=== PATIENT | male | born 1955 | race Caucasian/White ===

== ENCOUNTER 2023-08-29 08:29 | Day surgery (SDC) | payer MEDICARE, OTHER, SELFPAY ==
[2023-08-21 09:32] VITALS: BMI 32.6
[2023-08-29] VITALS (14 sets, daily range): BP systolic 109–152; BP diastolic 68–94; PULSE 58–70; RESP 13–23; TEMP 35.6–37; O2SAT 94–99; BMI 32.5
--- NOTE | 2023-08-29 07:26 | DI.RAD.S_ITS ---
PROCEDURE: XR SHOULDER LT MIN 2V INDICATIONS: TSA TECHNIQUE: 2 views of the shoulder were acquired. COMPARISON: [facility] [place], CR, XR SHOULDER 2+ VIEWS LEFT, 07/18/2021, 10:38. FINDINGS: Bones: Left shoulder arthroplasty hardware is intact. Apparent lucency along the stem and lateral aspect on the AP view. No fractures or dislocations. No suspicious bony lesions. Visualized ribs appear intact. Soft tissues: No suspicious soft tissue calcifications. Surgical changes about the left shoulder. IMPRESSION: Left shoulder arthroplasty hardware is intact. Apparent lucency along the stem and lateral aspect of the AP view may be secondary to overlying postsurgical gas. Anatomic alignment. Attention on follow-up imaging. Dictated by: Nirav Ruffin M.D. on 08/29/2023 at 15:11 Approved by: Nirav Ruffin M.D. on 08/29/2023 at 15:56
[2023-08-29] MEDS: ACETAMINOPHEN 325 MG TABLET 975 MG PO (09:15)
[2023-08-29] MEDS: LACTATED RINGERS 1,000 ML 42 ML IV ×2 (09:15→12:09)
[2023-08-29] MEDS: VANCOMYCIN 1,500 MG/300 ML PIGGYBACK 200 MG IV (09:16)
--- NOTE | 2023-08-29 10:14 | PM.PREOP ---
Pre-operative Note Interval Note History & Physical reviewed/Exam performed by Physician: Yes Changes to H&P: No
--- NOTE | 2023-08-29 10:42 | SUR.OPER ---
Beach chair with Nghia/Jonathan shoulder positioner. Lower body on padded OR bed. Head in foam padded head cradle, secured with straps. Non-operative arm secured <90 degrees abduction. Pillow under knees. Safety belt at thigh. Cloth tape over blanket over lower legs.
[2023-08-29] MEDS: GENTAMICIN 400 MG in SODIUM CHLORIDE 0.9% 100 ML 110 MG IV (11:15)
[2023-08-29] MEDS: LIDOCAINE 1% W/EPI 20 ML INJ (11:35)
--- NOTE | 2023-08-29 12:55 | P.OP_ITS ---
Operative Date/Time/Diagnoses Date of procedure: 08/29/23 Time of procedure: 11:00 Pre-op diagnosis: Left end-stage glenohumeral joint arthritis Post-op diagnosis: same Procedure & Clinicians Procedure: Left total shoulder arthroplasty Same procedure as scheduled: Yes Indications: End-stage arthritis left shoulder Surgeon: Alberto Tatum Sales And Service Consultant: Valeria De La Torre Operative Notes Findings: End-stage arthritic changes to the left glenohumeral joint with no sign of any rotator cuff tear. No sign of any high-riding humeral head. Closure Type: primary Applied: implant(s) (Large cage screw, 45 trunnion, large glenoid, 45 x 17 humeral head) Estimated Blood Loss (mL): 50 Procedure in detail: On date of service, Patient was met in the holding area. The operative site was signed and witnessed by the OR staff. The surgeries once again discussed with the patient and any remaining questions they had were answered fully. Patient was taken back to the operating theater and placed on the operating table in a supine position. Great care was taken to ensure that all bony prominences were properly padded. Patient was then placed into the beach chair position. The head and neck were properly positioned and secured. A timeout was performed verifying patient's name, procedure, and the operative site. The upper extremity was then prepped and draped in the normal sterile fashion. Previously, the bony anatomy and incision were marked out as well as injected with Marcaine with epinephrine. A deltopectoral approach was performed. 10 blade was used to incise the skin and fascial tissue. A deep knife was used to continue sharp dissection until the cephalic vein was visualized. The cephalic vein was dissected free allowing us to expose the deltopectoral interval. This interval was then developed. A Agudelo elevator was used to free up the deltoid of any scarring both superficially as well as deeply. The vein and the deltoid were taken laterally while the pectoralis was taken medially. This gave us good visualization of the strap muscles. The clavipectoral fascia was removed and the strap muscles were then retracted medially with the pectoralis. This gave us stabilization of the subscapularis. The circumflex vessels were ligated and the subscapularis was sharply excised off the lesser tuberosity and then tagged. Once the subscapularis was released we're able to dislocate the shoulder. Patient had end-stage arthritic changes to the humeral head as well as the glenoid with large osteophytes anterior inferiorly as well as posteriorly. A Ronger was then used to remove the osteophytes. See findings above for descriptions of the humeral head and glenoid. Next, cutting guide was placed and a saw was used to remove the humeral head. Once the head was removed it was templated. Pin was placed to determine the size of the trunnion screw. A large trunnion screw was measured. Protector placed for the osteotomy was then placed and and we turned our attention back to the subscapularis as well as the glenoid. The subscapularis was freed up and a 360? fashion. The degenerative anterior and inferior capsular tissue was removed. This was followed by removing the degenerative labral tissue from around the glenoid as well as the biceps insertion. Retractors were used to protect the axillary nerve while we remove the degenerative capsular and labral tissue. This gave us good visualization of the glenoid. Glenoid trials were used until we found the appropriate fit and curvature. A large glenoid provided the best fit. The center hole was drilled followed by reaming of the glenoid. The wound was copiously irrigated after reaming. Next the pegs were drilled and a trial glenoid was impacted into place. Once we were satisfied with the preparation of the glenoid, the final component was cemented into place. This was followed by impaction. We Return to our attention back to the humerus. The protector plate was removed and heads were trialed once again until we found the appropriate fit. A 45 x 17 head provided the best coverage as well as stability to the glenohumeral joint. Trials were removed and bone tunnels were made into the humeral neck. #2 FiberWire were passed through the bone tunnels for eventual subscapularis repair. The stem this implant were impacted into place and the shoulder was reduced. It was taken through range of motion and was felt to be stable in both posterior translation as well as external and internal rotation with abduction. The subscapularis was repaired back to the lesser tuberosity through the bone tunnels. This was then reinforced with soft tissue repair. Part of the rotator interval was then closed. A drain was placed and the rest of the wound was closed in a layered fashion. The shoulder was then cleaned dried and dressed and the patient was taken to the PACU in stable condition. Patient will follow our postoperative protocol for total shoulder arthroplasty. Complications: none Post-operative Condition: stable Disposition: PACU Plan for aftercare: Patient can be discharged home tomorrow. Patient's drain will need to be removed before discharge.
[2023-08-29] MEDS: LACTATED RINGERS 1,000 ML 100 ML IV (14:00)
[2023-08-29] MEDS: BENZOCAINE/MENTHOL 1 LOZ PKT 1 EACH PO (16:54)
--- NOTE | 2023-08-29 19:02 | PC.NURSE ---
Addendum entered by Kiera Devries R.N. 08/29/23 19:44: patient is able to void this evening. Original Note: Patient is A&OX4, VSS, afebrile on RA. Aquacel to LUE c/d/i. L arm in sling. Hemovac, draining 150cc blood this evening, Patient denies pain. Numbness to fingers, able to wiggle them. Dull sensation to LUE. He is able to ambulate with SBA and void this evening. Denies dizziness n/v. Continuous monitoring.
[2023-08-29] MEDS: SENNOSIDES 8.6 MG TABLET 17.2 MG PO (21:10)
[2023-08-29] MEDS: DOCUSATE 100 MG CAPSULE PO (21:10)
[2023-08-29] MEDS: VANCOMYCIN 1,000 MG/200 ML PIGGYBACK 200 MG IV (21:11)
[2023-08-30 06:23] LABS: Add Manual Diff / Slide Review NO; Basophils Absolute Auto 0 /uL (0-100); Basophils Percent Auto 0.2 % (0-2); Eosinophils Absolute Auto 0 /uL (0-450); Eosinophils Percent Auto 0.1 % (2-4); Hematocrit 37.8 % (41-53); Hemoglobin 12.8 g/dL (13.5-17.5); Lymphocytes Absolute Auto 1100 /uL (1100-4500); Lymphocytes Percent Auto 8.5 % (25-40); Mean Corpuscular HGB Conc 33.9 % (30-36); Mean Corpuscular Hemoglobin 34.4 PG (26-34); Mean Corpuscular Volume 101.4 fL (80-100); Monocytes Absolute Auto 1200 /uL (0-900); Monocytes Percent Auto 9.3 % (3-14); Neutrophils Absolute Auto 10900 /uL (1500-7000); Neutrophils Percent Auto 81.9 % (50-75); Platelet Count 143 X10^3/uL (150-400); Red Blood Cell Count 3.73 X10^6/uL (4.5-5.9); White Blood Cell Count 13.4 X10^3/uL (4.5-11.0)
[2023-08-30] MEDS: ACETAMINOPHEN 325 MG TABLET 650 MG PO (06:37)
[2023-08-30] MEDS: OXYCODONE IR 5 MG TABLET PO ×2 (06:37→09:06)
[2023-08-30 06:40] LABS: BUN Creatinine Ratio 19.6 (6-22); Blood Urea Nitrogen 19 mg/dL (9-20); Calcium 7.9 mg/dL (8.4-10.2); Carbon Dioxide 25 mmol/L (22-32); Chloride 107 mmol/L (98-107); Estimated Glomerular Filt Rate > 60 mL/min (>60); Glucose 137 mg/dL (80-110); HEMOLYSIS < 15 (0-50); Potassium 4.2 mmol/L (3.4-5.1); Sodium 138 mmol/L (137-145)
[2023-08-30 07:47] VITALS: BP 151/98; PULSE 105; RESP 16; TEMP 36.2; O2SAT 99
--- NOTE | 2023-08-30 08:54 | PM.DS.1 ---
History of Present Illness History of Present Illness Date Patient Seen: 08/30/23 Time Patient Seen: 08:45 Chief complaint: Left total shoulder arthroplasty *OPB* Narrative: Procedure & Clinicians Procedure: Left total shoulder arthroplasty Same procedure as scheduled: Yes Indications: End-stage arthritis left shoulder Surgeon: Alberto Tatum Community Chest Officer: Valeria De La Torre Operative Notes Findings: End-stage arthritic changes to the left glenohumeral joint with no sign of any rotator cuff tear. No sign of any high-riding humeral head. Closure Type: primary Applied: implant(s) (Large cage screw, 45 trunnion, large glenoid, 45 x 17 humeral head) Estimated Blood Loss (mL): 50 Discharge Providers Provider Date of admission: 08/29/23 Discharge Date: 08/30/23 Primary care physician: Vale Spicer MD Consults: 08/29/23 07:26 Consult to Anesthesiology Routine Comment: Consulting Provider: Anesthesiologist Reason for consultation: Regional block for post operative pain control Has provider been notified: No 08/29/23 12:52 Consult to Discharge Planning Routine Comment: Consult to Occupational Therapy Evaluate & Treat Comment: Physician Instructions: Evaluate and treat Consult to Physical Therapy Evaluate & Treat Comment: Physician Instructions: Evaluate and Treat Discharge provider: Xiang Cabezas PA-C Summary Hospital Course Discharge Diagnosis: Status post left shoulder total arthroplasty. Hospital Course: Multimodal pain control. Drain removed Status at Discharge Cognitive/behavioral status at discharge: oriented Functional status at discharge: independent ambulation Time Spent with Patient Time spent: Less than 30 minutes Exam Vital Signs (past 8 hours): - 08/30/23 07:47 Temperature 97.1 F L Pulse Rate 105 H Respiratory Rate 16 Blood Pressure 151/98 H Pulse Oximetry 99 Oxygen Flow Rate 0 Oxygen Delivery Method Room Air Oxygen Flow Rate 0 Narrative Exam Narrative: Patient is found in his breakfast this morning left shoulder immobilizer is in place and well-maintained. Drain was removed early this morning. Dressing appears to be dry and intact. Able to manipulate all 5 fingers. Sensation intact to light touch over all 5 fat pads. Able manipulate his wrist in all 4 anatomical positions. Resp Effort & Inspection: normal respiratory effort and able to speak in complete sentences Objective Labs 08/30/23 06:10 08/30/23 06:10 Labs: Laboratory Results - last 24 hr 08/30/23 06:10 WBC 13.4 H RBC 3.73 L Hgb 12.8 L Hct 37.8 L MCV 101.4 H MCH 34.4 H MCHC 33.9 RDW 16.0 H Plt Count 143 L Neut % (Auto) 81.9 H Lymph % (Auto) 8.5 L [place] % (Auto) 9.3 Eos % (Auto) 0.1 L Baso % (Auto) 0.2 Neut # (Auto) 84392 H Lymph # (Auto) 1100 [place] # (Auto) 1200 H Eos # (Auto) 0 Baso # (Auto) 0 Sodium 138 Potassium 4.2 Chloride 107 Carbon Dioxide 25 BUN 19 Creatinine 0.97 Estimated GFR > 60 BUN/Creatinine Ratio 19.6 Glucose 137 H Calcium 7.9 L PFSH Medical History Heart failure Acid reflux 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 Plan of Treatment: Keep dressing dry and intact. Keep left arm in shoulder immobilizer at all times except for assisted therapy. Patient is prescribed [place] 5 mg take every 6 hours for pain relief, ibuprofen 600 mg t.i.d. for inflammation and Zofran 4 mg take every 8 hours as needed for postoperative nausea. Patient will follow up in clinic in 2 weeks for wound check. Patient will follow up with outpatient physical therapy to start assisted range of motion. Discharge Plan Discharge Plan Patient Disposition: Home Discharge orders & Medications Discharge Orders: Discharge (Order); Ordered 08/30/23 Ordered By: Xiang Cabezas Prescriptions: Continued atorvastatin 80 mg Tablet 80 mg PO DAILY aspirin 81 mg Tablet,Delayed Release (Dr/Ec) 81 mg PO BEDTIME famotidine [Pepcid] 20 mg Tablet 20 mg PO DAILY allopurinol 300 mg Tablet 300 mg PO DAILY eplerenone 25 mg Tablet 12.5 mg PO DAILY losartan 50 mg Tablet 50 mg PO BID metoprolol succinate 100 mg Tablet Extended Release 24 Hr 200 mg PO DAILY fluticasone propionate 50 mcg/actuation [place],Suspension 2 spray INTRANASAL DAILY Rx Instructions: administer into each nostril metoprolol tartrate 25 mg Tablet 25 mg PO DAILY PRN (Reason: Break through Afib) Follow up/Referrals: Vale Spicer MD [Primary Care Provider] - Alberto Tatum MD [Physician] - (Follow up at [facility] as scheduled in 2 weeks. ) Diet/Activity/Treatments Activity: Keep left arm in immobilizer except for PT and home exercise program Skin/Wound/Dressing Care Report to your healthcare provider any signs of infection, such as:: chills, fever, night sweats, unusual drainage and unusual redness Dressing: Keep dressing clean and dry Visit Report/Discharge Packet Instructions: DI for Prescription Opioid Use, DI for Shoulder Replacement Stand Alone Forms: Patient Portal/API, Surgery Discharge Discharge Data Primary Care Provider: Vale Spicer Attending Provider: Alberto Tatum
[2023-08-30] MEDS: DOCUSATE 100 MG CAPSULE PO (09:06)
--- NOTE | 2023-08-30 11:12 | OT.IP.EVAL ---
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) CLARK on CPAP Osteoarthritis Palpitations Presence of Watchman left atrial appendage closure device (~05/2023) Prostate cancer (2009) Surgical History (Last Reviewed 08/29/23 @ 09:12 by Brooke Laguerre, RN) H/O vasectomy History of colonoscopy with polypectomy (~2022) Hx of heart artery stent (~2014) Hx of hernia repair Hx of prostatectomy (2009) Occupational Therapy Inpatient Evaluation/Re-Eval M1 PT/OT-IP Prior Functional Status Start: 08/30/23 11:37 Freq: NEEDED Status: Active Protocol: Document 08/30/23 11:40 [facility] (Rec: 08/30/23 11:55 [facility] [id number]) Medical Review Prior Functional Status Communication Independent Mobility and Gait Independent Activities of Daily Living and IADL's Independent but had pain with overhead reach and clothing items over head. Social History Household Members spouse Living Arrangements House Number of Floors (Floors) One Floor Number of Stairs To Enter/Railing? 5 steps with bilateral rails. Home Environment High Toilet,Walk in Shower M2 OT-IP Current Condition Start: 08/30/23 11:37 Freq: Status: Active Protocol: Document 08/30/23 11:40 [facility] (Rec: 08/30/23 11:55 [facility] [id number]) Occupational Therapy Current Condition Current Condition Evaluation Date 08/30/23 Treatment Diagnosis S/P L TSA Diagnosis Onset Date 08/29/23 Post Operative Precautions Shoulder Precautions Sling,PROM,Internal Rotation to Body,No External Rotation, No Abduction,Forward Flexion to 90 degrees,Pendulums M3 OT- IP Subjective and Pain Start: 08/30/23 11:37 Freq: Status: Active Protocol: Document 08/30/23 11:40 [facility] (Rec: 08/30/23 11:55 [facility] [id number]) OT- Subjective Occupational Therapy Visit Type Type Initial Evaluation Visit Start Time 11:12 Visit Stop Time 11:31 Occupational Therapy Visit Comments Patient Comments Pt agreed to work with OT. Patient/Caregiver Goals To go home. OT Pain Assessment Pain When Pain Assessed At Rest Pain Present Pain Present Pain Reported Location shoulder Intensity 4 Scale Used Numeric (0 - 10) M4 OT- IP ADL's Start: 08/30/23 11:37 Freq: Status: Active Protocol: Document 08/30/23 11:40 [facility] (Rec: 08/30/23 11:55 [facility] [id number]) OT [id number] General Evaluation Self-Feeding Ability Independent OT ADL-Grooming Comments OT Grooming Comments Not performed. OT ADL-Oral Care Comments Oral Care Comments Not performed. OT ADL-Dressing Comments OT Dressing Comments Pt states his has been able to assist him with the sling and clothing as sling was fitted to him prior to surgery. OT ADL-Toileting General Evaluation Toileting Ability Independent Comments OT Toileting Comments Pt has been independently using the toilet on his own. OT ADL-Bathing Comments OT Bathing Comments Suggested pt uses a shower chair, pt states has a built in seat and that his will assist. Went over care needs of his bandage. M5 OT- IP IADL's Start: 08/30/23 11:37 Freq: Status: Active Protocol: Document 08/30/23 11:40 [facility] (Rec: 08/30/23 11:55 [facility] [id number]) OT-Instrumental Activities of Daily Living Home Safety Awareness Awareness of Need for Assistance at Home Good Awareness Ability to Problem Solve Emergency Able to Problem Solve Situations Home Safety Comments Pt aware to get supervision from his as the pain medications have been making him groggy. Pt well aware that he will not be walking the dogs. Medication Management Medication Management No Deficits Identified Money Management Money Management No Deficits Identified Meal Preparation Meal Preparation Caregiver Provides Assist Pediatric Oncologist Pediatric Oncologist Caregiver Provides Assist M6 OT- IP Functional Cognition Start: 08/30/23 11:37 Freq: Status: Active Protocol: Document 08/30/23 11:40 [facility] (Rec: 08/30/23 11:55 [facility] [id number]) Cognitive Factors Limiting Selfcare Function Cognitive Ability Level of Alertness Alert Patient Orientation Name,Age,Birthday,Month,Date, Year,Day of Week,Place, Situation Attention Span Ability Capable of Focused Attention, Capable of Sustained Attention Ability to Follow Commands Able to Follow Multi-Step Commands Cognitive Comments Cognitive Assessment Comments Intact OT- Vision and Hearing OT- Hearing Assessment OT- Hearing Assessment WFL,Use of Hearing Aids OT- Vision Assessment Visual Acuity WFL,Glasses All The Time Visual Attentiveness WFL Occular Pursuits WFL M7 OT- IP Mobility and Balance Start: 08/30/23 11:37 Freq: Status: Active Protocol: Document 08/30/23 11:40 [facility] (Rec: 08/30/23 11:55 [facility] [id number]) OT- Bed Mobility Assessment Rolling Level of Assistance Independent Supine to Sit Supine to Sit Assist Independent Sit to Supine Sit to Supine Assist Independent Scooting Scooting to Edge of Bed Independent Scooting Up and Down in Bed Independent OT-Transfer Assessment Sit to and From Stand Sit to and from Stand Independent Transfers Transfer Ability Independent Technique Transfer Destination Bed,Chair Comments Mobility Comments Pt independent for all bed mobility, ambulation in the room and hallway and able to do 5 steps with right rail. OT- Balance Assessment Sitting Balance and Reactions Static Sitting Balance Ability Normal Dynamic Sitting Balance Ability Normal Standing Balance and Reactions Static Standing Balance Ability Normal Dynamic Standing Balance Ability Good M8 OT- IP Objective Assessments Start: 08/30/23 11:37 Freq: Status: Active Protocol: Document 08/30/23 11:40 [facility] (Rec: 08/30/23 11:55 [facility] [id number]) OT Gross Range of Motion Upper Extremity Range of Motion Assessment Left Impaired OT Strength Upper Extremity Strength Assessment Left Impaired M9 OT- IP Assessment and Plan Start: 08/30/23 11:37 Freq: Status: Active Protocol: Document 08/30/23 11:40 [facility] (Rec: 08/30/23 11:55 [facility] [id number]) OT Summary Assessment and Plan Potential Rehabilitation Potential Excellent Analytic Complexity at Evaluation Low Summary OT Impairments Pain,Range of Motion,Strength Progress Towards Goals Progressing Toward Goals,Safe For Discharge Assessment Summary Pt doing well and mobilizing well. Pt has a supportive to be able to assist for ADL and IADl needs. Pt's sling fitting well and pt not wanting to practice taking it on and off at this time. Pt already has an outpt PT appointment for Saturday. Pt to go home with assist and attend outpt PT. Frequency of Treatment Frequency Of Treatment Discharge Treatment Plan Other Treatment Recommendations and Next Pt to folllow up with outpt PT Treatment Focus for his left shoulder needs. Discharge Recommendations OT Discharge Recommendations Home with Assistance, Outpatient PT Transportation Needs at Discharge Private Vehicle
--- NOTE | 2023-08-30 11:13 | CM.DANOTE ---
Discharge Planning/Care Management CM Discharge Assessment Start: 08/30/23 11:11 Freq: Status: Active Protocol: Document 08/30/23 11:11 [facility] (Rec: 08/30/23 11:13 [facility] [id number]) Discharge Planning Assessment Assigned Blindmaker JACLYN Means DPOA/Assigned Designee Name Nimo Starks, spouse Contact Information [phone] Advance Directives? No History Provided By Patient Prior Living Arrangements House Household Members spouse Type of transporation used prior to Drives own vehicle admit Independent with ADL's Yes Is patient alert and oriented? Yes Patient/Family Preference OP PT Therapy,OP OT Therapy Barriers to Discharge No Comment POD 1 L TSA. Patient has planned for return home w/ spouse and therapies have cleared patient for this plan. No needs identified from this CM team. Discharge Plan Home Transportation Arrangement Spouse Referrals Initiated None needed
--- NOTE | 2023-08-30 13:03 | PT-IP ANOTE ---
PT eval order received and EMR reviewed. OT already evaluated pt and stated that pt does not have any PT needs. will d/c PT eval order
--- NOTE | 2023-08-30 13:32 | PC.NURSE ---
Discharge: Feels ready to go home. Has seen PA, received d/c instructions. Seen by OT and has her instructions. Has been up and amb in the room, gait is steady. Tolerates diet w/out problems. Vds w/out diff. Hemovac removed, tip intact. Po pain med effective. Splint is on and fits. Instructed in proper use of splint. Lt arm is still sl numb but he can move fingers, has brisk cap refill. Reviewed d/c packet. Already has scripts at home. Spouse here at time of teaching. Questions answered. Pt d/c to home with spouse.
== END 2023-08-30 11:55 | disposition home or self-care (01) ==
LOC: OR 08:33 → AC 08:34
PROVIDERS: PCP Internal Medicine; Referring Provider Orthopaedic Surgery; Visit Provider Orthopaedic Surgery
PROC: (CPT 23472; principal; 2023-08-29 10:45)
DX: M19.012 Primary osteoarthritis, left shoulder (principal); G89.18 Other acute postprocedural pain; M25.712 Osteophyte, left shoulder
CPT/HCPCS: 23472; 36415; 64415; 64450; 73030; 80048; 85025; 97165; C1776; J1100; J1885; J2405; J2704; J3010